=== PATIENT | male | born 1945 | race Caucasian/White ===

== ENCOUNTER 2023-03-08 09:54 | Outpatient (CLI) | payer MEDICARE, SELFPAY ==
--- NOTE | ~2023-03-08 | MR_ITS ---
EXAMINATION: MR abdomen wo/w con INDICATION: Indeterminate kidney mass TECHNIQUE: Coronal SSFSE ARC, WATER:coronal LAVA-FLEX, Coronal 2D FIESTA FatSat, Axial SSFSE BH ARC, Axial 3D DualEcho BH, Axial SSFSE-IR, Axial DWI b=500, Axial 2D FIESTA FatSat, pre and dynamic postco ntrast Axial LAVA ARC, postcontrast Coronal In and Opposed phase LAVA FLEX COMPARISON: None available CONTRAST: Multihance, 16 cc FINDINGS: There are multiple cysts of liver. The largest measures 4.7 cm in the right hepatic lobe. T he spleen, pancreas, and adrenal glands are normal. There are changes of cholecystectomy. Cysts of th e kidneys measure up to 3.8 cm on the left. No suspicious kidney mass is identified. No abnormal enha ncement after contrast administration. There are no pathologically enlarged abdominal lymph nodes. No dilated loops of bowel are evident. IMPRESSION: No suspicious kidney mass identified. Reviewed, dictated and finalized at location B. [facility]
== END 2023-03-08 09:55 | disposition home or self-care (01) ==
PROVIDERS: PCP Family Medicine; Visit Provider Nurse Practitioner
DX: N28.9 Disorder of kidney and ureter, unspecified (principal)
CPT/HCPCS: 74183; A9577